=== PATIENT | female | born 1965 | race Caucasian/White ===

== ENCOUNTER 2021-11-19 09:32 | Observation (INO) ==
[2021-11-19 09:57] LABS: Basophils # 0.1 K/mcL (0.0-0.2); Basophils % 0.9 %; Eosinophils # 0.2 K/mcL (0.0-0.6); Eosinophils % 2.8 %; Hematocrit 36.4 % (35.3-44.9); Hemoglobin 12.2 g/dL (11.5-15.4); Immature Granulocytes % 0.1 % (0-4); Lymphocytes # 2.6 K/mcL (0.6-4.6); Lymphocytes % 34.6 %; Mean Corpuscular HGB Conc 33.5 g/dL (31.6-35.5); Mean Corpuscular Hemoglobin 30.7 pg (28.0-33.3); Mean Corpuscular Volume 91.7 fL (83.0-100.0); Mean Platelet Volume 10.9 fL (9.4-12.4); Monocytes # 0.6 K/mcL (0.0-1.3); Monocytes % 7.5 %; Neutrophils # 4.1 K/mcL (1.6-8.9); Platelet Count 303 K/mcL (140-400); Red Blood Count 3.97 M/mcL (3.82-4.97); Red Cell Distribution Width 12.8 % (11.5-14.5); Segmented Neutrophils % 54.1 %; White Blood Count 7.5 K/mcL (4.3-11.1)
[2021-11-19] MEDS ORDERED: Aspirin 325 MG TABLET PO ONE (10:10)
[2021-11-19 10:19] LABS: BUN/Creatinine Ratio 17 (6-26); Blood Urea Nitrogen 15 mg/dL (6-20); Calcium 8.9 mg/dL (8.6-10.3); Carbon Dioxide 25 mEq/L (23-29); Chloride 104 mEq/L (98-107); Glucose 90 mg/dL (70-105); Osmolality,Calculated 284 (280-300); Potassium 3.6 mEq/L (3.5-5.1); Sodium 137 mEq/L (136-145); Troponin I < 0.03 ng/mL (< 0.04); eGFR For African Americans > 60 (> 60); eGFR For Non-African Americans > 60 (> 60)
[2021-11-19] MEDS ORDERED: Naloxone 0.4 MG/ML INJ IVP PRN (12:07)
[2021-11-19] MEDS ORDERED: Ondansetron 4 MG/2 ML VIAL IVP PRN (12:07)
[2021-11-19] MEDS ORDERED: Celecoxib 200 MG CAPSULE PO PRN (13:36)
[2021-11-19] MEDS ORDERED: tiZANidine 4 MG TABLET PO SCH (21:00)
[2021-11-20] MEDS ORDERED: Regadenoson 0.4 MG/5 ML SYRINGE IVP ONE (06:37)
[2021-11-20 09:00] VITALS: BP 143/94; PULSE 74; TEMP 97.8; O2SAT 99
[2021-11-20] MEDS ORDERED: Loratadine 10 MG TABLET PO SCH (09:00)
[2021-11-20] MEDS ORDERED: ELETRIPTAN HBR 40 MG PO PRN (14:30)
[2021-11-20] MEDS ORDERED: Ketorolac 30 MG/ML VIAL IVP ONE (14:31)
[2021-11-20] MEDS ORDERED: Acetaminophen/Butalbital/CaffeineTABLET PO PRN (14:48)
== END 2021-11-20 15:15 | disposition home or self-care (01) ==
LOC: EMEROOARM 09:32 → 2ANU 09:32 → SUATTDRO 11:54 → 2ANU 12:50
PROVIDERS: ADMIT Internal Medicine; ATTEND Internal Medicine